=== PATIENT | female | born 1940 | race Caucasian/White ===

== ENCOUNTER 2023-07-21 20:17 | Emergency (ER) | payer MEDICARE, MEDICAID, SELFPAY ==
--- NOTE | ~2023-07-21 | CT_ITS ---
EXAMINATION: CT abdomen pelvis w con DATE: 07/21/2023 22:39 INDICATION: abd pain TECHNIQUE: Computed tomography (CT) of the abdomen and pelvis was performed with 100 mL Omnipaque-350 intravenous contrast. Automated exposure control and iterative reconstruction technique were employe d. The dose-length product was 297.31 mGy-cm. COMPARISON: None. FINDINGS: Mild motion artifact. Lower thorax: Coronary artery and mitral calcifications. Cardiomegaly. Minimal bibasilar atelectasis/ scar Liver: Normal. Biliary/Gallbladder: Gallbladder is absent. Mild intra and extrahepatic bile duct dilation, likely se condary to age and cholecystectomy. Pancreas: Moderate pancreatic atrophy. Spleen: Normal. Adrenals:No mass. Kidneys: No suspicious mass, obstructing stone, or hydronephrosis. GI tract: Moderate distal esophageal and gastric wall edema. No small or large bowel dilation. Normal appendix. Mesentery/Peritoneum: No ascites, mass, or free air. Mild mesenteric edema. Retroperitoneum: No mass. Atherosclerotic abdominal aortic and/or arterial calcifications. Pelvis: Normal urinary bladder and uterus. Ovaries not confidently visualized.. Soft Tissues: Mild diffuse body wall edema Bones: No acute osseous finding. IMPRESSION: Moderate esophagitis/gastritis. Mild mesenteric edema and body wall edema. No other acute abdominopelvic process detected. Reviewed, dictated and finalized at location K.
[2023-07-21 20:20] VITALS: BP 149/80; PULSE 86; RESP 17; TEMP 36.6; O2SAT 99
--- NOTE | 2023-07-21 21:00 | ED.ABDPAIN ---
HPI - Abdominal Pain General Chief Complaint: Abdominal Pain Stated Complaint: ABD PAIN - ON HOSPICE Time Seen by Provider: 07/21/23 20:20 History of Present Illness HPI narrative: Patient is an 83-year-old female who presents to the emergency department this evening complaining of abdominal cramping and diarrhea. Patient states the cramping is worse on the left side of her abdomen, along her left upper quadrant. Patient states symptoms have been ongoing for a few days, she is also complaining of urinary incontinence. Patient admits that she has been urinating a lot and feels as though she is wetting herself and is unable to hold her urine until she reaches the bathroom. Patient denies any dysuria or hematuria. Related Data Allergies Allergy/AdvReac Type Severity Reaction Status Date / Time prednisone Allergy Unknown Unknown Verified 10/29/20 15:04 Review of Systems Review of Systems: All systems are reviewed and are negative unless stated otherwise in the HPI. [facility] Family History Family History Sibling Patient's sister is in good health Patient's brother is in good health Family history of cardiovascular disease Mother Family history of congestive heart failure Other Asthma Social History Social History Smoking status: Former smoker Second hand tobacco smoke exposure: Yes Alcohol intake: never Exam Narrative: General: Alert, awake, afebrile, in no acute distress. HEENT: PERRL, no rhinorrhea, no post nasal drip, oropharynx clear. Neck: Trachea midline, no JVD, no lymphadenopathy. Cardiovascular: Regular rate and rhythm, no murmurs, rubs or gallops, no peripheral edema. Respiratory: Clear to auscultation bilaterally, no tachypnea, no wheezing, no rhonchi, no rubs, no respiratory distress. Abdomen: Soft, nontender, nondistended, no rebound, no guarding, no peritoneal signs. Musculoskeletal: No joint swelling or deformity, normal muscle tone. Skin: No rashes or petechia, no signs of infection. Psychiatric: Alert and oriented, normal behavior and judgment for situation. Neurological: Alert and oriented to person, place, and time. Follows all commands. No focal deficits, speech is clear and fluent. Course Vital Signs Vital signs: Vital Signs Temperature 97.9 F 07/21/23 20:20 Pulse Rate 86 07/21/23 20:20 Respiratory Rate 17 07/21/23 20:20 Blood Pressure 149/80 H 07/21/23 20:20 Pulse Oximetry 99 07/21/23 20:20 Oxygen Delivery Room Air 07/21/23 20:20 Temperature 97.9 F 07/21/23 20:20 Pulse Rate 82 07/22/23 01:31 Respiratory Rate 21 H 07/22/23 01:31 Blood Pressure 166/55 H 07/22/23 01:31 Pulse Oximetry 93 07/22/23 01:31 Oxygen Delivery Nasal Cannula 07/21/23 21:19 Oxygen Flow Rate 2 07/21/23 21:19 MDM - Abdominal Pain MDM Narrative Medical decision making narrative: The patient was evaluated by myself in the emergency department. History is obtained from patient who is an independent historian and physical exam was performed. External medical records were reviewed at this time. IV was established and pertinent tests were ordered. Patient was administered 500 cc IV fluid bolus with normal saline. Laboratory results obtained revealing a hemoglobin of 8.7, BUN of 49, otherwise the remainder of the blood work is unremarkable, patient's baseline hemoglobin and BUN are are unknown. Urinalysis revealed no evidence of urinary tract infection. Imaging studies obtained included CT abdomen pelvis with IV contrast which was independently interpreted by me revealing moderate esophagitis/gastritis otherwise no acute process, which is pending final radiology interpretation. Differential diagnosis considerations include pancreatitis, gastritis, gastroenteritis, and urinary tract infection. Comorbidities impacting this visit include n
[2023-07-21 21:01] VITALS: BP 159/76; PULSE 80; RESP 20
[2023-07-21 21:19] VITALS: O2SAT 98
[2023-07-21 21:22] LABS: Basophils Percent Auto 0.6 % (0.2-1.2); Eosinophils Absolute Auto 0.1 K/mm3 (0-0.3); Eosinophils Percent Auto 1.6 % (0-4.4); Hematocrit 27.6 % (37.0-47.0); Hemoglobin 8.7 g/dL (12.0-15.0); Immature Granulocyte Absolute 0.01 K/mm3 (0.00-0.031); Immature Granulocyte Percent A 0.2 % (0-0.5); Lymphocytes Absolute Auto 1.42 K/mm3 (0.9-3.2); Lymphocytes Percent Auto 22.5 % (18.3-44.2); Mean Corpuscular HGB Conc 31.5 g/dl (32-36); Mean Corpuscular Hemoglobin 28.1 pg (26-34); Mean Platelet Volume 9.1 fl (7.4-10.4); Monocytes Absolute Auto 0.7 K/mm3 (0.1-0.6); Monocytes Percent Auto 11.3 % (2.6-8.5); Neutrophils Percent Auto 63.8 % (45.5-73.1); Platelet Count Result 239 k/mm3 (150-375); Red Cell Distribution Width 15.3 % (11.5-14.5); White Blood Count 6.3 K/mm3 (4.5-10.0)
[2023-07-21 21:31] VITALS: BP 166/66; PULSE 76; RESP 15; O2SAT 97
[2023-07-21 21:32] LABS: Lactic Acid Reflex 0.6 mmol/L (0.7-2.0)
[2023-07-21 21:34] LABS: Alanine Aminotransferase 12 U/L (6-35); Albumin Level 4.2 g/dL (3.5-5.1); Alkaline Phosphatase 97 U/L (38-126); Anion Gap 6 mmol/L (4-12); Aspartate Amino Transferase 29 U/L (14-36); Bilirubin,Total 0.3 mg/dL (0.2-1.3); Blood Urea Nitrogen 49 mg/dL (7-17); Calcium 9.7 mg/dL (8.4-10.2); Carbon Dioxide 28 mmol/L (22-30); Chloride 101 mmol/L (98-107); Estimated Glomerular Filt Rate 53; Glucose 97 mg/dL (65-110); Lipase 192 U/L (23-300); Magnesium 2.4 mg/dL (1.6-2.3); Potassium 4.4 mmol/L (3.4-5.0); Sodium 135 mmol/L (137-145)
[2023-07-21 22:16] VITALS: BP 158/79; PULSE 100; RESP 20
[2023-07-21] MEDS: SODIUM CHLORIDE 0.9% IV 1,000 ML 500 ML IV CONT (23:47)
[2023-07-22] VITALS (11 sets, daily range): BP systolic 123–166; BP diastolic 52–100; PULSE 68–90; RESP 13–21; O2SAT 93–96
[2023-07-22 00:08] LABS: Appearance Urine Clear (Clear); Bilirubin Urine Negative (Negative); Blood Urine Negative (Negative); Color Urine Yellow (Yellow); Glucose Urine UA Negative (Negative); Ketones Urine Negative (Negative); Leukocyte Esterase Ur Negative LEU/UL (Negative); Nitrate Urine Negative (Negative); Protein Urine Negative (Negative); Urobilinogen Urine 0.2 mg/dL (<2.0); pH Urine 7.5 (5.0-9.0)
[2023-07-22 00:10] LABS: Add Urine Microscopic? NO
--- NOTE | 2023-07-22 01:15 | PC.NURSE ---
Patient being discharged home by EMS. Called patient's daughter for update on patient being discharged and she states that she cannot come get her and does not have a portable oxygen tank.
== END 2023-07-22 07:53 | disposition home or self-care (01) ==
PROVIDERS: Emergency Provider Emergency Medicine; PCP Internal Medicine
DX: K29.70 Gastritis, unspecified, without bleeding (principal); K20.90 Esophagitis, unspecified without bleeding; R32 Unspecified urinary incontinence; Z87.891 Personal history of nicotine dependence
CPT/HCPCS: 36415; 74177; 80053; 81003; 82248; 83605; 83690; 83735; 85025; 96360; 96361; 99284; J7030; Q9967